=== PATIENT | female | born 1955 | race Two or more races ===

== ENCOUNTER 2020-01-29 06:39 | Outpatient (CLI) | payer OTHER | END 2020-01-29 23:59 | disposition home or self-care (01) | LOC: LAB 06:39 | PROVIDERS: ATTEND Orthopaedic Surgery | DX: Z01.812 Encounter for preprocedural laboratory examination (principal); Z11.59 Encounter for screening for other viral diseases ==

== ENCOUNTER 2020-01-30 09:30 | Outpatient (CLI) | payer OTHER ==
[2020-01-30 10:25] LABS: BASOPHILS # (AUTO) 0.1 K/uL (0.0-8.0); BASOPHILS % (AUTO) 1.1 % (0.0-2.0); EOSINOPHILS # (AUTO) 0.1 K/uL (0.0-0.7); EOSINOPHILS % (AUTO) 2.8 % (0.0-7.0); HEMATOCRIT 44.6 % (31.2-41.9); HEMOGLOBIN 14.8 g/dL (10.9-14.3); LYMPHOCYTES # (AUTO) 1.7 K/uL (20.0-40.0); LYMPHOCYTES % (AUTO) 31.8 % (20.5-51.5); MEAN CORPUSCULAR HEMOGLOBIN 28.6 uug (24.7-32.8); MEAN CORPUSCULAR HGB CONC 33 g/dL (32.3-35.6); MEAN CORPUSCULAR VOLUME 86.5 fL (75.5-95.3); MONOCYTES # (AUTO) 0.5 K/uL (2.0-10.0); MONOCYTES % (AUTO) 8.7 % (0.0-11.0); NEUTROPHILS % (AUTO) 55.6 % (38.5-71.5); PLATELET COUNT (AUTO) 196 K/uL (179-408); RED BLOOD CELL COUNT(AUTO) 5.15 MIL/uL (3.63-4.92); WHITE BLOOD COUNT (AUTO) 5.3 K/uL (3.8-11.8)
[2020-01-30 10:32] LABS: *BILIRUBIN,URIN NEGATIVE (NEGATIVE); *BLOOD, URINE 2+ (NEGATIVE); *CLARITY,URINE SLIGHTLY CLOUDY (CLEAR); *COLOR,URINE YELLOW (YELLOW); *KETONES,URINE NEGATIVE (NEGATIVE); *UROBILINOGEN,URINE 0.2 E.U./dl (NORMAL); LEUKOCYTE ESTERASE ,URINE 1+ (NEGATIVE); NITRITE, URINE NEGATIVE (NEGATIVE); UGLUCOSE NEGATIVE (NEGATIVE)
[2020-01-30 10:39] LABS: CREATININE 0.8 mg/dL (0.6-1.3)
[2020-01-30 10:44] LABS: BILIRUBIN,TOTAL 0.4 mg/dL (0.2-1.0)
[2020-01-30 12:56] LABS: BACTERIA,URINE FEW /HPF (NONE SEEN); SQUAMOUS EPITHELIAL CELL,UR FEW /HPF (NONE SEEN)
== END 2020-01-30 23:59 | disposition home or self-care (01) ==
LOC: LAB 09:30
PROVIDERS: ATTEND Orthopaedic Surgery
DX: Z01.818 Encounter for other preprocedural examination (principal); S43.402A Unspecified sprain of left shoulder joint, initial encounter; M75.122 Complete rotator cuff tear or rupture of left shoulder, not specified as traumatic; I51.7 Cardiomegaly; I51.9 Heart disease, unspecified; X58.XXXA Exposure to other specified factors, initial encounter; Y93.89 Activity, other specified; Y92.89 Other specified places as the place of occurrence of the external cause; Y99.0 Civilian activity done for income or pay
CPT/HCPCS: 36415; 71045; 85025; 85730; 87086; 93005; 93307; A4663

== ENCOUNTER 2020-02-01 06:11 | Day surgery (SDC) | payer OTHER ==
[2020-02-01] MEDS ORDERED: LIDOCAINE-MPF 2% 5 ML VIAL IJ ONE (06:12)
[2020-02-01] MEDS ORDERED: NEOSTIGMINE METHYLSULFATE 10 MG/10 ML VIAL IM ONE (06:12)
[2020-02-01] MEDS ORDERED: PROPOFOL 200 MG/20 ML BOTTLE IV ONE (06:12)
[2020-02-01] MEDS ORDERED: IV LACTATED RINGERS SOLUTION 1,000 ML BAG IV ONE (06:12)
[2020-02-01] MEDS ORDERED: KETOROLAC TROMETHAMINE 30 MG INJ IM ONE (06:12)
[2020-02-01] MEDS ORDERED: GLYCOPYRROLATE 0.2 MG/ML VIAL IJ ONE (06:12)
[2020-02-01] MEDS ORDERED: SIMETHICONE 40 MG/0.6 ML, 30ML BOTTLE MC ONE (06:12)
[2020-02-01] MEDS ORDERED: IV NORMAL SALINE 1000 ML BAG IV ONE (06:12)
[2020-02-01] MEDS ORDERED: DEXAMETHASONE SOD PHOSPHATE 4 MG INJ IV ONE (06:12)
[2020-02-01] MEDS ORDERED: ONDANSETRON 4 MG/2 ML VIAL IV ONE (06:12)
[2020-02-01] MEDS ORDERED: CEFAZOLIN 1 G VIAL IM ONE (06:12)
[2020-02-01] MEDS ORDERED: SEVOFLURANE 250 ML BOTTLE IH ONE (06:12)
[2020-02-01] MEDS ORDERED: EPHEDRINE SULFATE 50 MG/ML AMPUL IM ONE (06:12)
[2020-02-01] MEDS ORDERED: BUPIVACAINE/EPI PF 0.5% 10 ML VIAL ONE (06:43)
[2020-02-01] MEDS ORDERED: POLYMYXIN B SULFATE 500,000 UNITS, BACITRACIN 50,000 UNITS, NORMAL SALINE 20 ML MC ONE ×3 (07:15)
[2020-02-01] MEDS ORDERED: BUPIVACAINE PF 0.5% 30 ML VIAL ONE (07:38)
[2020-02-01] MEDS ORDERED: HYDROMORPHONE 2 MG/1 ML DISP.SYRIN ONE (07:59)
[2020-02-01] MEDS ORDERED: ROCURONIUM BROMIDE 50 MG/5 ML VIAL ONE (07:59)
[2020-02-01] MEDS ORDERED: Z GUARD REMEDY PASTE 57 GM TUBE ONE (10:52)
[2020-02-01] MEDS ORDERED: ONDANSETRON 4 MG/2 ML VIAL ONE (10:53)
[2020-02-01] MEDS ORDERED: FENTANYL CITRATE 100 MCG/2 ML AMPUL ONE (11:04)
[2020-02-01] MEDS ORDERED: HYDROCODONE/APAP 10-325 MG TABLET ONE (11:38)
== END 2020-02-01 13:15 | disposition home or self-care (01) ==
LOC: DS 06:11
PROVIDERS: ATTEND Orthopaedic Surgery
DX: M75.102 Unspecified rotator cuff tear or rupture of left shoulder, not specified as traumatic (principal); M75.42 Impingement syndrome of left shoulder; I10 Essential (primary) hypertension; Z79.899 Other long term (current) drug therapy; Z98.890 Other specified postprocedural states; Z87.440 Personal history of urinary (tract) infections
CPT/HCPCS: 23120; 23130; 23410; J0690; J1100; J1170; J1885; J2405 ×2; J2710; J3010; J3490 ×7; J7120 ×2; A4565; A4649; J7030